=== PATIENT | female | born 1965 | race Caucasian/White ===

== ENCOUNTER 2021-05-14 09:55 | Emergency (ER) | payer OTHER, SELFPAY ==
--- NOTE | ~2021-05-14 | XR_ITS ---
EXAMINATION: XR hand RT min 3V DATE: 05/14/2021 10:24 INDICATION: Boudreaux bruising and fifth metacarpal pain post fall with hyperextension injury to the rig ht hand. TECHNIQUE: Posteroanterior, oblique and lateral views of the right hand were obtained. COMPARISON: None. FINDINGS: Alignment is normal. No fracture. Mild osteoarthritis at the first carpometacarpal and multiple inter phalangeal joints. Soft tissues are unremarkable. IMPRESSION: 1. No acute osseous abnormality. Reviewed, dictated and finalized at location A. TY DIRECTOR
[2021-05-14 10:14] VITALS: BP 124/83; PULSE 69; RESP 16; TEMP 36.6; O2SAT 100
--- NOTE | 2021-05-14 10:48 | ED.UPPEXIN ---
HPI - Extremity Injury (Upper) General Chief Complaint: Extremity Injury, Upper Stated Complaint: rt hand inj Time Seen by Provider: 05/14/21 10:48 Source: patient, RN notes reviewed and old records reviewed Mode of arrival: ambulatory Limitations: no limitations History of Present Illness HPI narrative: 55-year-old female who presents to [facility] with complaints of injury to her right hand with bruising to the palmar surface and fifth metacarpal which occurred early this morning.when she was taking out trash. Patient reports that she was walking on uneven surface and was dark and she rolled her right and fell onto extended right hand with pain and bruising to the palmar hand and to right 5th finger. Patient has some abrasions on right gunter hand region with no drainage noted. MD complaint: injury to: right and finger Onset (ago): hour(s) (at 0400 today) Related Data Home Medications Medication Instructions Recorded Confirmed estradiol 2 mg PO DAILY 05/14/21 05/14/21 levothyroxine 112 mcg PO DAILY 05/14/21 05/14/21 pravastatin 40 mg PO DAILY 05/14/21 05/14/21 sertraline 100 mg PO DAILY 05/14/21 05/14/21 Allergies Allergy/AdvReac Type Severity Reaction Status Date / Time orphenadrine Allergy Mild HIVES Verified 05/14/21 10:37 Review of Systems Review of Systems: CONSTITUTIONAL: Denies fever, chills, or sweats. EYES: Denies visual changes, redness, or discharge. ENT: Denies rhinorrhea, congestion, sore throat, or otalgia. CARDIOVASCULAR: Denies chest pain, palpitations, or edema. RESPIRATORY: Denies cough or dyspnea. GASTROINTESTINAL: Denies abdominal pain, nausea, vomiting, or diarrhea. GENITOURINARY: Denies dysuria or hematuria. SKIN: Denies rash or itching. MUSCULOSKELETAL:Chronic back pain, right gunter hand pain and pain to 5th finger right hand or myalgia. NEUROLOGIC: Denies headache, numbness, or weakness. PSYCHIATRIC:Positive for history of anxiety or depression. All systems reviewed & are unremarkable except as noted in HPI and below PMFSH Past Medical History Medical History (Updated 05/15/21 @ 10:26 by Gifty Wagner NP) Anxiety with depression DDD (degenerative disc disease) Elevated cholesterol History of sinus problem Hypothyroidism Surgical History Surgical History (Updated 05/15/21 @ 10:42 by Gifty Wagner NP) History of tonsillectomy Hx of cholecystectomy Hx of foot surgery left tarsal tendon repair Hx of hysterectomy, total Status post right partial knee replacement Family History Family History (Updated 05/15/21 @ 10:33 by Gifty Wagner NP) Grandparent Pancreatic cancer Cerebrovascular accident Diabetes mellitus Acute myocardial infarction Hypertension Mother Arthritis Father Arthritis Acute myocardial infarction Social History Social History (Updated 05/15/21 @ 10:31 by Gifty Wagner NP) Smoking status: Never smoker Alcohol intake: unknown Substance use: never Living arrangements: with family Gender identity (if verbalized by the patient): Female Comments At time of signature, agree with nursing past medical, surgical, social and family history. There is no relevant family history pertinent to the presenting complaint Exam Narrative: GENERAL: Well-appearing, well-nourished, and in no acute distress. HEAD: Normocephalic, atraumatic. EYES: PERRLA and EOMI. ENT: Nares clear, no rhinorrhea or epistaxis. Mucous membranes moist.TM's normal with good light reflex, throat pink no lesions or exudates, tonsils absent NECK: Supple.no lymphadenopathy CHEST: Clear to auscultation. No respiratory distress.SAO2 100% on room air HEART: Regular rate and rhythm. No murmur heard. Normal peripheral pulses. ABDOMEN: Soft, nontender, nondistended, normal active bowel sounds. EXTREMITIES: Normal range of motion. No edema. Bruising and tenderness to the gunter aspect of right hand and to the 5th finger, full ROM noted, hand warm and pink, no tingling or nu
== END 2021-05-14 11:03 | disposition home or self-care (01) ==
PROVIDERS: Emergency Provider Registered Nurse; PCP Obstetrics & Gynecology
DX: S60.051A Contusion of right little finger without damage to nail, initial encounter (principal); S60.221A Contusion of right hand, initial encounter; W19.XXXA Unspecified fall, initial encounter; E78.00 Pure hypercholesterolemia, unspecified; E03.9 Hypothyroidism, unspecified; F41.8 Other specified anxiety disorders; Z90.710 Acquired absence of both cervix and uterus; Z96.651 Presence of right artificial knee joint
CPT/HCPCS: 73130; 99213; G0463